=== PATIENT | male | born 1985 | race American Indian/Alaskan Native ===

== ENCOUNTER 2019-02-22 19:02 | Emergency (ER) | payer SELFPAY ==
[2019-02-22 19:18] VITALS: BP 132/79
--- NOTE | 2019-02-22 19:29 | Event Note ---
ED Screening Note ED Screening Note: +dysuria +penile discharge states swelling in the glans penis no testicular edema no pain in the testicles no PMHx no allergies to meds +sexually active, unprotected This initial assessment/diagnostic orders/clinical plan/treatment(s) is/are subject to change based on patients health status, clinical progression and re- assessment by fellow clinical providers in the ED. Further treatment and workup at subsequent clinical providers discretion. Patient/guardian urged not to elope from the ED as their condition may be serious if not clinically assessed and managed. Initial orders include: UA, G/C
[2019-02-22 20:19] LABS: Bilirubin,Urine NEG (Negative); Color,Urine Yellow (Yellow)
[2019-02-22 20:20] LABS: Blood,Urine NEG (Negative); Mucus,Urine 3+ /HPF; Protein,Urine <15 mg/dL mg/dL (Negative); Urobilinogen,Urine < 2.0 mg/dL (<2.0)
[2019-02-22] MEDS ORDERED: ROCEPHIN IM ONE (21:41)
[2019-02-22] MEDS ORDERED: ZITHROMAX PO ONE (21:41)
[2019-02-22] MEDS ORDERED: XYLOCAINE 1% MPF 5 mL INFILTRATI ONE (21:41)
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
== END 2019-02-22 22:15 | disposition home or self-care (01) ==
LOC: ED 19:02
DX: Z20.2 Contact with and (suspected) exposure to infections with a predominantly sexual mode of transmission (principal)
CPT/HCPCS: 81001; 87591; 96372; 99283; J0696